=== PATIENT | female | born 1965 | race Caucasian/White ===

== ENCOUNTER 2018-01-08 08:00 | Day surgery (SDC) | payer BC ==
[2018-01-08 08:58] VITALS: BMI 24.0
[2018-01-08 09:09] VITALS: O2SAT 100
[2018-01-08] MEDS ORDERED: Midazolam 2 MG/2 ML VIAL ONE (09:30)
[2018-01-08] MEDS ORDERED: Propofol 10 mg/ml Inj (20 ML) ONE ×2 (09:30→09:47)
[2018-01-08 10:16] VITALS: TEMP 98
[2018-01-08 10:47] VITALS: BP 137/76; PULSE 81; RESP 12
== END 2018-01-08 11:05 | disposition home or self-care (01) ==
LOC: C.ENDO 08:00
PROVIDERS: ATTEND Internal Medicine Gastroenterology
DX: D50.0 Iron deficiency anemia secondary to blood loss (chronic) (principal); K29.70 Gastritis, unspecified, without bleeding; D12.7 Benign neoplasm of rectosigmoid junction
CPT/HCPCS: 43239; 45380; 84703; 88305; 88312; 88313; 88342; J2001; J2250; J2704; J7040